=== PATIENT | male | born 1985 | race African-American/Black ===

== ENCOUNTER 2016-10-12 12:33 | Emergency (ER) | payer OTHER ==
[2016-10-12 12:40] VITALS: BMI 39.9
[2016-10-12] MEDS ORDERED: RANITIDINE HCL 150 MG TABLET (FP) PO ONE (14:18)
--- NOTE | 2016-10-12 14:18 | PDOC ---
History of Present Illness - General Chief Complaint: Pain Stated Complaint: PAIN Time Seen by Provider: 10/12/16 13:17 History Source: Patient Exam Limitations: No Limitations - History of Present Illness Initial Comments: 10/12/16 14:22 Chief complaint: Epigastric, chest discomfort radiating to her throat 2 weeks with nausea History of present illness: Patient is a 31-year-old male with no significant medical history sent here from his primary care provider's office to to patient going there today to complain about having chest discomfort and epigastric discomfort that radiates to his throat intermittently 2 days with nausea. Patient had an EKG done at his primary care provider's office Breanne RAO , and he had a repeat EKG done here that was within normal limits per Dr. Harp who reviewed it. Patient does not appear to be in any current distress. Patient denies any sore throat, cough, shortness of breath, or any diaphoresis. Patient reports that he has had intermittent epigastric discomfort that radiates to his chest and into his throat 2 weeks with nausea. Patient reports that he gets an empty feeling in his epigastric area at this morning, will eat something small and symptoms lessen. Patient reports that this morning around 6 to 7:00 he got the same symptoms of empty feeling epigastric area with discomfort that radiated up or twist chest into his throat. Patient ate a hotdog felt slightly better. Patient reports that the pain was a 10 this morning. Patient denies any radiation of pain to his back or down his arms or having any shortness of breath or diaphoresis when this occurs. Patient denies any vomiting. Patient reports that his bowel movements have been normal. Patient denies any recent travel or any sick contacts. Timing/Duration: intermittent (for 2 weeks ) Severity: moderate Associated Symptoms: reports: nausea/vomiting (nausea), other (chest discomfort radiates upward to throat relieved somewhat from eating, no diaphoresis, sob, cough). denies: cough, diaphoresis, loss of appetite, shortness of breath Past History - Past Medical History Allergies/Adverse Reactions: Allergies Allergy/AdvReac Type Severity Reaction Status Date / Time No Known Allergies Allergy Verified 10/14/16 18:03 Home Medications: Ambulatory Orders NK [No Known Home Medication] 10/14/16 Other medical history: DENIES - Psycho/Social/Smoking Cessation Hx Anxiety: No Suicidal Ideation: No Smoking History: Never smoked Hx Alcohol Use: Yes (SOCIAL) Drug/Substance Use Hx: No Substance Use Type: None Review of Systems - Review of Systems Able to Perform ROS?: Yes Constitutional: No: Symptoms Reported HEENTM: No: Symptoms Reported Respiratory: No: Symptoms reported Cardiac (ROS): Yes: Other (chest discomfort radiates upward to throat) ABD/GI: Yes: Nausea (intermittent for 2 weeks, with an empty sensation epigastric area) : No: Symptoms Reported Musculoskeletal: No: Symptoms Reported Integumentary: No: Symptoms Reported Neurological: No: Symptoms reported *Physical Exam - Vital Signs Last Vital Signs Temp Pulse Resp BP Pulse Ox 98.1 F 70 20 138/81 99 10/12/16 12:35 10/12/16 12:35 10/12/16 12:35 10/12/16 12:35 10/12/16 12:35 - Physical Exam General Appearance: Yes: Appropriately Dressed HEENT: positive: Normal ENT Inspection Neck: negative: Lymphadenopathy (R), Lymphadenopathy (L) Respiratory/Chest: positive: Lungs Clear, Normal Breath Sounds. negative: Chest Tender, Respiratory Distress Cardiovascular: positive: Regular Rhythm, Regular Rate, S1, S2 Gastrointestinal/Abdominal: positive: Normal Bowel Sounds, Soft, Other ( negative McBurney, negative Garcia). negative: Tender, Organomegaly, Distended , Guarding, Rebound, Tenderness, Hepatomegaly, Spleenomegaly Integumentary: positive: Normal Color Neurologic: positive: Alert, Normal Response, Responsive Heart Score/ECG Review - ECG Impressions Comment:: 10/12/16 14:[address] Yeh [facility]'s Medical Decision Making - Medical Decision Making 10/12/16 14:27 Patient is a 31-year-old male with no significant medical history sent here from his primary care provider's office to to patient going there today to complain about having chest discomfort and epigastric discomfort that radiates to his throat intermittently 2 days with nausea. Patient had an EKG done at his primary care provider's office Breanne RAO, and he had a repeat EKG done here that was within normal limits per Dr. Harp who reviewed it. Patient does not appear to be in any current distress. Patient denies any sore throat, cough, shortness of breath, or any diaphoresis. Patient reports that he has had intermittent epigastric discomfort that radiates to his chest and into his throat 2 weeks with nausea. Patient reports that he gets an empty feeling in his epigastric area at this morning, will eat something small and symptoms lessen. Patient reports that this morning around 6 to 7:00 he got the same symptoms of empty feeling epigastric area with discomfort that radiated up or twist chest into his throat. Patient ate a hotdog felt slightly better. Patient reports that the pain was a 10 this morning. Patient denies any radiation of pain to his back or down his arms or having any shortness of breath or diaphoresis when this occurs. Patient denies any vomiting. Patient reports that his bowel movements have been normal. Patient denies any recent travel or any sick contacts. Patient denies ever having surgery. Patient denies any leg pain or swelling. Pt. denies eating and lying down. Pt. denies increase in belging, feels as if he wants to but does not. Differential diagnoses rule out EKG abnormalities GERD r/o chest abnormality PLAN: EKG wnl's reviewed by Dr. Ibarra Xray Chest PA/lateral No evidence of active pulmonary disease, Cardiomegaly, Mildly uncoiled thoracic aorta. per Dr. Burns Zantac 150 mg po now THAN bid follow up with primary copy of Chest Xray given to pt. to give to PCP 10/12/16 14:29 10/12/16 14:29 10/12/16 15:13 10/12/16 15:22 PT. DENIES ANY SYMPTOMS PRESENTLY IS HUNGRY 10/15/16 13:45 *DC/Admit/Observation/Transfer Diagnosis at time of Disposition: GERD (gastroesophageal reflux disease) Qualifiers: Esophagitis presence: esophagitis presence not specified Qualified Code(s): K21.9 - Gastro-esophageal reflux disease without esophagitis - Discharge Dispostion Disposition: HOME Condition at time of disposition: Stable - Referrals Referrals: Yahir Campos MD [Primary Care Provider] - - Patient Instructions Printed Discharge Instructions: DI for Gastroesophageal Reflux Disease (GERD) Additional Instructions: FOLLOW UP WITH YOUR PRIMARY IN A FEW DAYS RETURN TO EMERGENCY ROOM FOR WORSENING SYMPTOMS DO NOT EAT AND LIE DOWN FOR AT LEAST 2 HOURS, AVOID SPICEY AND FRIED FOODS PATIENT VOICED UNDERSTANDING OF DISCHARGE INSTRUCTIONS AND ALL QUESTIONS WERE ANSWERED
[2016-10-12] MEDS ORDERED: RANITIDINE HCL 150 MG TABLET (FP) ONE (14:28)
[2016-10-12 15:31] VITALS: BP 123/78; PULSE 78; TEMP 98.8
--- NOTE | 2016-10-18 14:42 | EKG ---
Test Reason : Blood Pressure : / mmHG Vent. Rate : 067 BPM Atrial Rate : 067 BPM P-R Int : 164 ms QRS Dur : 084 ms QT Int : 370 ms P-R-T Axes : 051 005 011 degrees QTc Int : 390 ms NORMAL SINUS RHYTHM POSSIBLE LEFT ATRIAL ENLARGEMENT LEFT VENTRICULAR HYPERTROPHY ABNORMAL ECG NO PREVIOUS ECGS AVAILABLE Confirmed by MOISES BLANKENSHIP, JAYNA ([id number]) on 10/18/2016 2:41:37 PM Referred By: Confirmed By:JAYNA DE LEON MD
== END 2016-10-12 15:31 | disposition home or self-care (01) ==
LOC: JER 12:33
PROC: 3E02329 Introduction of Other Anti-infective into Muscle, Percutaneous Approach (ICD-10-PCS; principal; 2016-10-12)
PROC: 3E033GC Introduction of Other Therapeutic Substance into Peripheral Vein, Percutaneous Approach (ICD-10-PCS; 2016-10-12)
DX: T78.40XA Allergy, unspecified, initial encounter (principal); J02.0 Streptococcal pharyngitis
CPT/HCPCS: 71020-TC; 93005; 93010; 99282-25

== ENCOUNTER 2016-10-13 06:25 | Emergency (ER) | payer OTHER ==
[2016-10-13 06:46] VITALS: TEMP 97.5; BMI 39.9
--- NOTE | 2016-10-13 07:35 | PDOC ---
History of Present Illness - General Chief Complaint: Pain, Acute Stated Complaint: THROAT PROBLEM Time Seen by Provider: 10/13/16 07:14 History Source: Patient Exam Limitations: No Limitations - History of Present Illness Initial Comments: 10/13/16 08:00 31-year-old male with no past medical history presents the ED with complaints of sore throat without fever neck stiffness, headache, nausea or abdominal pain. Patient states 2 days ago did have epigastric pain which he was seen here for an discharge. Patient denies recent travel, recent sick contacts, recent illness. Patient states no change in appetite but states difficulty swallowing solids. Patient denies change in voice. Timing/Duration: other (2 days) Severity: mild Associated Symptoms: denies: cough, fever/chills, headaches Past History - Travel Traveled outside of the country in the last 30 days: No Close contact w/someone who was outside of country & ill: No - Past Medical History Allergies/Adverse Reactions: Allergies Allergy/AdvReac Type Severity Reaction Status Date / Time No Known Allergies Allergy Verified 10/13/16 06:41 Home Medications: Ambulatory Orders Ranitidine [Zantac -] 150 mg PO BID #30 tablet 10/12/16 - Psycho/Social/Smoking Cessation Hx Anxiety: No Suicidal Ideation: No Smoking History: Never smoked Hx Alcohol Use: Yes (SOCIAL) Drug/Substance Use Hx: No Substance Use Type: None Patient Lives Alone: No Review of Systems - Review of Systems Able to Perform ROS?: Yes Constitutional: No: Symptoms Reported HEENTM: Yes: Throat Pain, Difficulty Swallowing Respiratory: No: Symptoms reported ABD/GI: No: Symptoms Reported, Nausea Musculoskeletal: No: Symptoms Reported Integumentary: No: Symptoms Reported Neurological: No: Symptoms reported *Physical Exam - Vital Signs Last Vital Signs Temp Pulse Resp BP Pulse Ox 97.5 F L 70 18 132/65 100 10/13/16 06:41 10/13/16 06:41 10/13/16 06:41 10/13/16 06:41 10/13/16 06:41 - Physical Exam General Appearance: Yes: Nourished, Appropriately Dressed. No: Apparent Distress HEENT: positive: EOMI, YARON, TMs Normal, Pharyngeal Erythema (3+ tonsils francisco. no exudate.) Neck: positive: Supple, Lymphadenopathy (R), Lymphadenopathy (L) (upper cervical ) Respiratory/Chest: positive: Lungs Clear, Normal Breath Sounds. negative: Respiratory Distress, Accessory Muscle Use Cardiovascular: positive: Regular Rhythm, Regular Rate. negative: Murmur Integumentary: positive: Normal Color, Warm, Moist Neurologic: positive: Motor Strength 5/5 (ambulatory) Medical Decision Making - Medical Decision Making 10/13/16 08:03 Patient with a sore throat for the past 2 days associated with difficulty swelling solids. Patient denies headache fever abdominal pain presently. Patient on exam had erythematous 3+ tonsils bilaterally with upper cervical lymphadenopathy. Patient consented for strep throat. Patient ordered for rapid strep. 10/13/16 08:33 Patient positive for group A strep. Patient will be discharged home with azithromycin. *DC/Admit/Observation/Transfer Diagnosis at time of Disposition: Strep throat - Discharge Dispostion Disposition: HOME Condition at time of disposition: Good - Referrals Referrals: Brenda Che MD [Primary Care Provider] - - Patient Instructions Printed Discharge Instructions: DI for Strep Throat Additional Instructions: Eat soft nonabrasive foods for the next few days. take antibiotics as ordered starting today and complete as recommended. Drink plenty of fluids and may take Motrin for discomfort or fever.
[2016-10-13 09:16] VITALS: BP 128/60; PULSE 80
== END 2016-10-13 09:27 | disposition home or self-care (01) ==
LOC: JER 06:25
DX: J02.0 Streptococcal pharyngitis (principal); B95.0 Streptococcus, group A, as the cause of diseases classified elsewhere
CPT/HCPCS: 87070; 87430; 99283-25

== ENCOUNTER 2016-10-14 17:52 | Emergency (ER) | payer OTHER ==
[2016-10-14 18:00] VITALS: TEMP 98.3; BMI 39.9
[2016-10-14] MEDS ORDERED: SODIUM CHLORIDE 0.9% 1000 ML INFUS.BAG IV ONE (19:38)
[2016-10-14] MEDS ORDERED: DEXAMETHASONE SOD PHOSPHATE 10 MG/1 ML VIAL IVPUSH ONE (19:38)
--- NOTE | 2016-10-14 19:40 | PDOC ---
History of Present Illness - General Chief Complaint: Chest Pain Stated Complaint: RASH Time Seen by Provider: 10/14/16 19:11 - History of Present Illness Initial Comments: 10/14/16 19:38 CHIEF COMPLAINT: itching and burning HISTORY OF PRESENT ILLNESS: 31 yo M with no PMH presents to ED with itching to head, underarms, and feet and burning to tongue. Patient reports that he was seen here two days ago for a sore throat and prescribed antibiotics. In the evening he started feeling the itching and burning to the tongue. He denies any fever, nausea, vomiting, diarrhea, but does report epigastric discomfort which he was seen for 3 days ago. He is concerned that something is wrong with his heart but denies any chest pain or shortness of breath at this time. PAST MEDICAL HISTORY: Denies past medical history FAMILY HISTORY: Denies SOCIAL HISTORY: Denies tobacco, alcohol, illicit drug use. SURGICAL HISTORY: Denies ALLERGIES: No known drug allergies REVIEW OF SYSTEMS General/Constitutional: Denies fever or chills. Denies weakness, weight change. HEENT: Denies change in vision. Denies ear pain or discharge. Denies sore throat. Cardiovascular: Denies chest pain or shortness of breath. Respiratory: Denies cough, wheezing, or hemoptysis. Gastrointestinal: Denies nausea, vomiting, diarrhea or constipation. Denies rectal bleeding. Genitourinary: Denies dysuria, frequency, or change in urination. Musculoskeletal: Denies joint or muscle swelling or pain. Denies neck or back pain. Skin and breasts: Denies rash or easy bruising. Neurologic: Denies headache, vertigo, loss of consciousness, or loss of sensation. PHYSICAL EXAM General Appearance: Well-appearing, appropriately dressed. No apparent distress , no intoxication. HEENT: EOMI, PERRLA, normal ENT inspection, normal voice, TMs normal, pharynx normal. No conjunctival pallor. No photophobia, scleral icterus. Neck: Supple. Trachea midline. No tenderness, rigidity, carotid bruit, stridor , lymphadenopathy, or thyromegaly. Respiratory/Chest: Lungs CTAB. No shortness of breath, chest tenderness, respiratory distress, accessory muscle use. No crackles, rales, rhonchi, stridor , wheezing, dullness Cardiovascular: RRR. S1, S2. No JVD, murmur, bradycardia, tachycardia. Vascular Pulses: Dorsalis-Pedis (R): 2+, Dorsalis-Pedis (L): 2+ Gastrointestinal/Abdominal: Normal bowel sounds. Abdomen soft, non-distended. No tenderness or rebound tenderness. No organomegaly, pulsatile mass, guarding , hernia, hepatomegaly, splenomegaly. Lymphatic: No adenopathy, tenderness. Musculoskeletal/Extremities: Normal inspection. FROM of all extremities, normal capillary refill. Pelvis Stable. No CVA tenderness. No tenderness to extremities, pedal edema, swelling, erythema or deformity. Integumentary: Appropriate color, dry, warm. 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 Fully oriented, alert. Appropriate mood/affect. Motor strength 5/5. No appreciable EOM palsy, facial droop or sensory deficit. 10/14/16 21:32 Past History - Past Medical History Allergies/Adverse Reactions: Allergies Allergy/AdvReac Type Severity Reaction Status Date / Time No Known Allergies Allergy Verified 10/14/16 18:03 Home Medications: Ambulatory Orders NK [No Known Home Medication] 10/14/16 Other medical history: PATIENT DENIES MEDICAL HISTORY - Psycho/Social/Smoking Cessation Hx Anxiety: No Suicidal Ideation: No Smoking History: Never smoked Hx Alcohol Use: No Drug/Substance Use Hx: No Substance Use Type: None *Physical Exam - Vital Signs Last Vital Signs Temp Pulse Resp BP Pulse Ox 98.3 F 116 H 18 131/78 95 10/14/16 17:54 10/14/16 17:54 10/14/16 17:54 10/14/16 17:54 10/14/16 17:54 ED Treatment Course - RADIOLOGY Radiology Studies Ordered: Category Date Time Status CHEST PA & LAT [RAD] Stat Radiology 10/14/16 19:14 Ordered Medical Decision Making - Medical Decision Making 10/14/16 21:35 31 yo M with no PMH presents to ED s/p diagnosis of strep A yesterday with new onset itching pruritis and "burning of tongue. Exam unremarkable, no rash or lesions appreciated to skin. No ulcerations to tongue or oral mucosa. VS remarkable for HR of 116, likely secondary to strep infection -IVF, Benadryl, decadron -CXR, EKG -Bicillin IM Will monitor for adverse reaction of PCN. 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 Advised patient of signs and symptoms for return to ER; patient verbalized understanding and agrees to plan. *DC/Admit/Observation/Transfer Diagnosis at time of Disposition: Strep throat Allergic reaction to drug Qualifiers: Encounter type: initial encounter Qualified Code(s): T78.40XA - Allergy, unspecified, initial encounter - Discharge Dispostion Disposition: HOME Condition at time of disposition: Stable Admit: No - Referrals Referrals: Coretta Willams MD [Staff Physician] - Vilma Bowden MD [Staff Physician] - - Patient Instructions Printed Discharge Instructions: DI for Itching, DI for Adverse Drug Reaction - - Allergic Additional Instructions: As discussed, please discontinue the medication prescribed to you yesterday. You MUST follow up with a primary care doctor and the vocational school teacher next week - referrals have been provided. If you experience any shortness of breath, swelling of your throat, tongue, lips, or mouth, difficulty breathing, or you develop fever, nausea, vomiting, diarrhea, or any new or worsening symptoms, please return to the ER. - Post Discharge Activity Work/School Note: Back to Work
[2016-10-14] MEDS ORDERED: DEXAMETHASONE SOD PHOSPHATE 10 MG/1 ML VIAL ONE (19:43)
[2016-10-14] MEDS ORDERED: PENICILLIN G BENZATHINE 1,200,000 UNIT/2 ML PFS IM ONE (21:22)
[2016-10-14 22:30] VITALS: PULSE 85
[2016-10-14 22:31] VITALS: BP 126/72
--- NOTE | 2016-10-16 10:20 | EKG ---
Test Reason : Blood Pressure : / mmHG Vent. Rate : 116 BPM Atrial Rate : 116 BPM P-R Int : 150 ms QRS Dur : 080 ms QT Int : 304 ms P-R-T Axes : 065 017 010 degrees QTc Int : 422 ms SINUS TACHYCARDIA POSSIBLE LEFT ATRIAL ENLARGEMENT WHEN COMPARED WITH ECG OF 12-OCT-2016 12:46, VENT. RATE HAS INCREASED BY 49 BPM Confirmed by LUCILLE ESPINOSA MD ([id number]) on 10/16/2016 10:20:15 AM Referred By: Confirmed By:LUCILLE ESPINOSA MD
== END 2016-10-14 22:31 | disposition home or self-care (01) ==
LOC: JER 17:52
PROC: 3E03329 Introduction of Other Anti-infective into Peripheral Vein, Percutaneous Approach (ICD-10-PCS; principal; 2016-10-14)
PROC: 3E033GC Introduction of Other Therapeutic Substance into Peripheral Vein, Percutaneous Approach (ICD-10-PCS; 2016-10-14)
PROC: 3E0337Z Introduction of Electrolytic and Water Balance Substance into Peripheral Vein, Percutaneous Approach (ICD-10-PCS; 2016-10-14)
DX: J02.0 Streptococcal pharyngitis (principal); T36.95XA Adverse effect of unspecified systemic antibiotic, initial encounter; Y92.9 Unspecified place or not applicable
CPT/HCPCS: 71020-TC; 93005; 93010; 96372; 96374; 96375; 99283-25

== ENCOUNTER 2020-06-17 11:45 | Emergency (ER) | payer OTHER ==
[2020-06-17 11:58] VITALS: TEMP 98; BMI 39.6
[2020-06-17] MEDS ORDERED: LACTATED RINGERS SOLUTION 1000 ML INFUS.BAG IV ONE (13:28)
[2020-06-17] MEDS ORDERED: ONDANSETRON 4 MG/2 ML VIAL IVPUSH ONE (13:28)
[2020-06-17] MEDS ORDERED: ACETAMINOPHEN 1000 MG/100 ML VIAL (NON FORMULARY) IVPB ONE (13:28)
[2020-06-17] MEDS ORDERED: FAMOTIDINE 20 MG/50 ML IVPB 20 MG/50 ML MG IVPB ONE ×2 (13:28→14:07)
[2020-06-17] MEDS ORDERED: MAG HYDROX/AL HYDROX/SIMETH 30 ML UNIT-DOSE CUP PO ONE (13:28)
[2020-06-17] MEDS ORDERED: ACETAMINOPHEN INJECTION 100 ML IVPB ONE (14:06)
[2020-06-17] MEDS ORDERED: MAG HYDROX/AL HYDROX/SIMETH 30 ML UNIT-DOSE CUP ONE (14:07)
[2020-06-17] MEDS ORDERED: ONDANSETRON 4 MG/2 ML VIAL ONE (14:07)
[2020-06-17 14:20] LABS: BASO % 0.7 % (0-2.0); EOS % 3.2 % (0-4.5); HEMATOCRIT 44.2 % (35.4-49); HEMOGLOBIN 15.2 GM/dL (11.7-16.9); LYMPH % 22.4 % (8-40); MCH 31.9 pg (25.7-33.7); MCHC 34.4 g/dl (32.0-35.9); MEAN CELL VOLUME 92.7 fl (80-96); MEAN PLT VOLUME 7.8 fl (7.5-11.1); MONO % 11.1 % (3.8-10.2); NEUT % 62.6 % (42.8-82.8); PLATELET COUNT 315 K/MM3 (134-434); RBC 4.77 M/mm3 (4.00-5.60); RDW 12.9 % (11.9-15.9); WHITE BLOOD COUNT 5.7 K/mm3 (4.0-10.0)
[2020-06-17 14:37] LABS: CHLORIDE 105 mmol/L (98-107); POTASSIUM 4.3 mmol/L (3.5-5.1); SODIUM 139 mmol/L (136-145)
[2020-06-17 14:39] LABS: ALBUMIN 4.2 g/dl (3.4-5.0); ANION GAP 7 MMOL/L (8-16); BLOOD UREA NITROGEN 13.2 mg/dL (7-18); CALCIUM 8.9 mg/dL (8.5-10.1); CO2 27 mmol/L (21-32)
[2020-06-17 14:40] LABS: GLUCOSE,RANDOM 83 mg/dL (74-106)
[2020-06-17 14:42] LABS: CREATININE 1.1 mg/dL (0.55-1.3); SGOT/AST 17 U/L (15-37); SGPT/ALT 33 U/L (13-61)
[2020-06-17 14:44] LABS: BILIRUBIN,TOTAL 0.8 mg/dL (0.2-1)
[2020-06-17 14:45] LABS: ALK PHOS 70 U/L (45-117)
[2020-06-17 15:53] VITALS: BP 131/82; PULSE 83
== END 2020-06-17 16:25 | disposition home or self-care (01) ==
LOC: JER 11:45
PROC: 3E033GC Introduction of Other Therapeutic Substance into Peripheral Vein, Percutaneous Approach (ICD-10-PCS; principal; 2020-06-17)
DX: R07.9 Chest pain, unspecified (principal)
CPT/HCPCS: 36415; 71046-TC-FY; 80053; 82550; 82553; 84484; 85025; 93005; 93010; 99285-25; J0131

== ENCOUNTER 2021-08-06 08:43 | Emergency (ER) | payer OTHER ==
[2021-08-06 09:09] VITALS: BP 130/91; PULSE 128; TEMP 97.1; BMI 39.1
[2021-08-06] MEDS ORDERED: DIPHTH,PERTUSS(ACELL),TET 0.5 ML DISP.SYRIN IM ONE ×2 (10:03→10:40)
== END 2021-08-06 12:29 | disposition home or self-care (01) ==
LOC: JER 08:43 → JERFT 08:43
PROC: 3E0234Z Introduction of Serum, Toxoid and Vaccine into Muscle, Percutaneous Approach (ICD-10-PCS; principal; 2021-08-06)
DX: S31.153A Open bite of abdominal wall, right lower quadrant without penetration into peritoneal cavity, initial encounter (principal); Y04.1XXA Assault by human bite, initial encounter
CPT/HCPCS: 90471; 90715; 99283-25